=== PATIENT | male | born 1995 | race Caucasian/White ===

== ENCOUNTER 2024-06-20 08:28 | Inpatient (IN) | payer BC, SELFPAY ==
[2024-06-20 08:00] VITALS: BP 164/89; PULSE 80; RESP 18; TEMP 36.1; O2SAT 100
[2024-06-20 09:03] VITALS: BMI 37.2
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
[2024-06-20] MEDS: Nicotine Polacrilex 2 MG GUM 4 MG BUCCAL (10:30)
[2024-06-20] MEDS: Nicotine 21 MG PATCH.TD24 TRANSDERMA (10:30)
[2024-06-20] MEDS: Acetaminophen 325 MG TABLET 650 MG PO (10:31)
--- NOTE | 2024-06-20 12:23 | PC.ADMIT ---
[facility]. He has had some recent life changes including the of his second child, a son who is now four months old. Per his admission paperwork from [facility] he is homeless, though Richard reports he is currently living in a single family house with his inlaws. This was meant to be a short term solution and is overcrowded. Richard?s conversational style is circumstantial and he can be difficult to follow.. He is alert, oriented to person, place and situation, but not the date. He cooperative with the admission process but intermittently appears disorganized. He was medically restrained at [facility] after reacting poorly to being told he could not leave the hospital. He appears in good spirits while speaking about this, but suggests that he might anger easily if he is not in agreement with his treatment here. Richard is an occasional social drinker and uses THC occasionally. He has a distant history of other drug use but has not used other substances for many years. His tox screen is negative. He denies current SI/HI/AVH and is able to come to staff if thoughts occur. Skin check complete and generally unremarkable, though he has a history of eczema; provider aware and cream ordered. During his last hospitalization Richard was started on Latuda but stopped it when it made his legs swell because he was concerned about cardiac risk. He is hypertensive and states a family history of heart disease and glaucoma. He is concerned he too may have glaucoma due to some peripheral vision loss. He also reports irritable bowel and ADHD symptoms. Richard reports recent unintentional weight loss, but he says his appetite is normal. Patient is placed on 15 minute checks for safety.?
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
[2024-06-20] MEDS: Cariprazine HCl 1.5 MG CAPSULE PO (15:25)
[2024-06-20 19:50] VITALS: BP 142/95; PULSE 75; RESP 16; TEMP 36.6; O2SAT 97
[2024-06-20] MEDS: traZODone HCL 50 MG TABLET PO ×2 (20:29→21:43)
[2024-06-21 08:11] VITALS: BP 169/93; PULSE 90; RESP 18; TEMP 36.6; O2SAT 100
[2024-06-21] MEDS: Cariprazine HCl 1.5 MG CAPSULE PO (08:26)
[2024-06-21] MEDS: Cyclobenzaprine HCl 10 MG TABLET PO ×2 (08:30→23:59)
[2024-06-21 08:54] LABS: Estimated Average Glucose 100 mg/dL; Hemoglobin A1c % 5.1 % (<6.0)
[2024-06-21 09:04] LABS: Alanine Aminotransferase 40 U/L (0-40); Albumin Level 4.4 g/dL (3.5-5.0); Alkaline Phosphatase 57 U/L (39-117); Anion Gap 12 (12-20); Aspartate Amino Transferase 36 U/L (5-37); Bilirubin Total 0.4 mg/dL (0.0-1.0); Blood Urea Nitrogen 10 mg/dL (9-16); Calcium 9.4 mg/dL (8.4-10.2); Carbon Dioxide 27 mmol/L (22-29); Chloride 105 mmol/L (96-108); Cholesterol 168 mg/dL (<200); Creatinine Clr Calc Pharmacy 131.5; Estimated Glomerular Filt Rate > 60; Glucose Fasting 97 mg/dL (60-99); HDL Cholesterol 42 mg/dL (>40); LDL Cholesterol Calculated 112 mg/dL (<100); Potassium 4.7 mmol/L (3.3-5.1); Sodium 139 mmol/L (135-145); Total Protein 7.3 g/dL (6.5-8.0); Triglycerides 71 mg/dL (<150)
[2024-06-21] MEDS: Acetaminophen 325 MG TABLET 650 MG PO (13:16)
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
[2024-06-21] MEDS: Ibuprofen 600 MG TABLET PO (18:06)
[2024-06-21 20:00] VITALS: BP 155/96; PULSE 75; RESP 16; TEMP 36.9; O2SAT 97
[2024-06-21] MEDS: traZODone HCL 50 MG TABLET PO (23:59)
[2024-06-22] MEDS: Magnesium Hydrox/Alum Hydrox 30 ML ORAL.SUSP PO
[2024-06-22] MEDS: LORazepam 1 MG TABLET 2 MG PO (04:01)
[2024-06-22 08:16] VITALS: BP 166/86; PULSE 98; RESP 16; TEMP 36.4; O2SAT 99
[2024-06-22] MEDS: Cariprazine HCl 3 MG CAPSULE PO (08:42)
[2024-06-22] MEDS: Ibuprofen 600 MG TABLET PO ×2 (08:45→20:10)
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
--- NOTE | 2024-06-22 16:15 | MHC.CLN ---
NUTRITION CONSULT FOR RECENT WEIGHT LOSS. EMR REVIEWED. PATIENT REPORTED NORMAL APPETITE AND WEIGHT LOSS. WEIGHT LOSS NOT QUANTIFIED. BMI=37.2, OBESE. NO PRIOR WEIGHT HX VIEWED. PATIENT BIPOLAR, MANIC, WITHOUT STABLE HOUSING IN COMMUNITY. PLEASE CONSULT RD IF POOR PO >3 DAYS. NO ADDITIONAL NUTRITION INTERVENTIONS AT THIS TIME.
[2024-06-22 20:00] VITALS: BP 187/94; PULSE 99; RESP 18; TEMP 36.4; O2SAT 97
[2024-06-22] MEDS: QUEtiapine Fumarate 200 MG TABLET PO (20:10)
[2024-06-22] MEDS: hydrOXYzine HCL 25 MG TABLET PO (22:06)
[2024-06-23 08:00] VITALS: BP 144/87; PULSE 92; RESP 18; TEMP 36.6; O2SAT 100
[2024-06-23] MEDS: Ibuprofen 600 MG TABLET PO ×2 (08:22→20:38)
[2024-06-23] MEDS: hydrOXYzine HCL 25 MG TABLET PO (08:23)
[2024-06-23] MEDS: Cariprazine HCl 3 MG CAPSULE PO (08:23)
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
[2024-06-23] MEDS: Nicotine Polacrilex Lozenge 4 MG LOZENGE BUCCAL (17:06)
[2024-06-23] MEDS: Nicotine 21 MG PATCH.TD24 TRANSDERMA (17:06)
[2024-06-23 20:00] VITALS: BP 175/86; PULSE 93; RESP 16; TEMP 36.9; O2SAT 99
[2024-06-23] MEDS: QUEtiapine Fumarate 300 MG TABLET PO (20:35)
[2024-06-23] MEDS: Cyclobenzaprine HCl 10 MG TABLET PO (20:37)
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
[2024-06-24] MEDS: OLANZapine 10 MG TABLET PO ×2 (05:29→09:36)
[2024-06-24] MEDS: Ibuprofen 600 MG TABLET PO (05:29)
[2024-06-24] MEDS: LORazepam 1 MG TABLET 2 MG PO ×2 (05:30→09:35)
[2024-06-24 08:00] VITALS: BP 95/51; PULSE 69; RESP 18; TEMP 36.6; O2SAT 98
[2024-06-24] MEDS: Cariprazine HCl 3 MG CAPSULE PO (09:30)
[2024-06-24] MEDS: Cyclobenzaprine HCl 10 MG TABLET PO (09:36)
[2024-06-24] MEDS: Nicotine Polacrilex Lozenge 4 MG LOZENGE BUCCAL (09:38)
== END 2024-06-24 11:39 | disposition home or self-care (01) | DRG 750 ==
PROVIDERS: Admitting Provider Psychiatry & Neurology Psychiatry; Visit Provider Psychiatry & Neurology Psychiatry
DX: F25.0 Schizoaffective disorder, bipolar type (principal); F17.210 Nicotine dependence, cigarettes, uncomplicated; F43.10 Post-traumatic stress disorder, unspecified; I10 Essential (primary) hypertension; F90.9 Attention-deficit hyperactivity disorder, unspecified type; J45.990 Exercise induced bronchospasm; Z71.6 Tobacco abuse counseling; Z79.899 Other long term (current) drug therapy
CPT/HCPCS: 36415; 80053; 80061; 83036

== ENCOUNTER → 2024-06-20 08:28 | Outpatient (BNV) | payer BC, SELFPAY | PROVIDERS: Admitting Provider Psychiatry & Neurology Psychiatry; Visit Provider Internal Medicine | DX: I10 Essential (primary) hypertension (principal) | CPT/HCPCS: 99222 ==

== ENCOUNTER → 2024-06-20 08:28 | Outpatient (BNV) | payer BC, SELFPAY | PROVIDERS: Admitting Provider Psychiatry & Neurology Psychiatry; Visit Provider Psychiatry & Neurology Psychiatry | DX: F25.0 Schizoaffective disorder, bipolar type (principal); F43.11 Post-traumatic stress disorder, acute; F90.9 Attention-deficit hyperactivity disorder, unspecified type | CPT/HCPCS: 90792; 99232; 99239 ==